=== PATIENT | female | born 1970 | race African-American/Black ===

== ENCOUNTER 2021-03-05 22:53 | Inpatient (IN) | payer BC ==
[~2021-03-05 22:53] MED LIST: Iopamidol-370 76% 500 ML 1 ML ONE
[2021-03-06] MEDS ORDERED: Ondansetron ODT 4 MG TAB ONE (00:05)
[2021-03-06] MEDS ORDERED: Morphine 4 MG/ML VIAL ONE ×2 (00:05→01:21)
[2021-03-06] MEDS ORDERED: Ondansetron PF 4 MG/2 ML Vial ONE (00:06)
[2021-03-06 00:07] LABS: #Eosinphils 0.2 thou/uL (0.0-0.7); #Lymphocytes 4.1 thou/uL (1.20-3.40); #Monocytes 0.8 thou/uL (0.11-0.59); %Basophils 0.2 % (0.0-1.0); %Eosinophils 1.5 % (0.0-10.0); %Lymphocytes 31.2 % (21.0-51.0); %Neutrophils 61.1 % (42.0-75.0); BHCG - Serum Negative (NEGATIVE); Hemoglobin 14.6 g/dL (12.0-16.0); Mean Corpuscular HGB CONC 34.8 g/dL (32.0-36.0); Mean Corpuscular Hemoglobin 31.2 pg (27.0-31.0); Mean Corpuscular Volume 89.7 fL (78.0-98.0); Mean Platelet Volume 8.4 fL (7.4-10.4); Platelet Count 296 thou/uL (130-400); RBC Distribution Width 11.8 % (11.5-14.5); Red Blood Cell (RBC) Count 4.68 mill/uL (4.20-5.40)
[2021-03-06 00:08] LABS: Pregs Control Background? CLEAR/WHITE (CLR/WHITE); Pregs Control Bar Appear? YES (CONTROL BAR)
[2021-03-06 00:23] LABS: ALT (SGPT) 11 U/L (8-55); AST (SGOT) 16 U/L (5-34); Albumin 4.2 g/dL (3.5-5.0); Alkaline Phosphatase 75 U/L (40-110); Anion Gap 14 mmol/L (10-20); BUN (Urea Nitrogen) 11 mg/dL (9.8-20.1); Bilirubin, Total 0.8 mg/dL (0.2-1.2); Calc. Creatinine Clearance 0 mL/min (70-130); Calcium 9.8 mg/dL (7.8-10.44); Carbon Dioxide 31 mmol/L (22-29); Chloride 101 mmol/L (98-107); Globulin 3.3 g/dL (2.4-3.5); Glucose 145 mg/dL (70-105); Lipase 13 U/L (8-78); Protein, Total 7.5 g/dL (6.0-8.3); Sodium 143 mmol/L (136-145)
[2021-03-06 00:27] LABS: Potassium 2.7 mmol/L (3.5-5.1)
[2021-03-06] MEDS ORDERED: Promethazine HCl 25 MG/ML VIAL ONE (00:59)
[2021-03-06] MEDS ORDERED: Potassium Chloride 40 MEQ in Sodium Chloride 0.9% 250 ML 250 ML IVPB SCH (02:00)
[2021-03-06] MEDS ORDERED: Acetaminophen 325 MG TAB PO PRN (03:23)
[2021-03-06] MEDS ORDERED: Ondansetron ODT 4 MG TAB PO PRN (03:23)
[2021-03-06] MEDS ORDERED: Ondansetron PF 4 MG/2 ML Vial IVP PRN (03:23)
[2021-03-06] MEDS ORDERED: Piperacillin/Tazobactam 3.375 GM in Sodium Chloride 0.9% 100 ML IVPB SCH ×2 (04:00→05:00)
[2021-03-06] MEDS ORDERED: Sodium Chloride 0.9% (PF) 10 ML VIAL FS PRN (04:30)
[2021-03-06] MEDS ORDERED: Pantoprazole 40 MG VIAL IVP SCH (05:00)
[2021-03-06 05:26] VITALS: BMI 30.7
[2021-03-06] MEDS: D5 1/2 NS w/20 mEq KCL 1,000 ML IV SCH ×2 (05:41→16:05)
[2021-03-06 06:18] LABS: Magnesium 1.7 mg/dL (1.6-2.6); Phosphorus 3.3 mg/dL (2.3-4.7)
[2021-03-06 06:33] LABS: Anion Gap 12 mmol/L (10-20); BUN (Urea Nitrogen) 9 mg/dL (9.8-20.1); CK (CPK) 56 U/L (29-168); Calc. Creatinine Clearance 99 mL/min (70-130); Calcium 9.3 mg/dL (7.8-10.44); Carbon Dioxide 27 mmol/L (22-29); Chloride 108 mmol/L (98-107); Glucose 118 mg/dL (70-105); Potassium 3.2 mmol/L (3.5-5.1); Sodium 144 mmol/L (136-145)
[2021-03-06 06:37] LABS: Lactic Acid 2.7 mmol/L (0.5-2.2)
[2021-03-06 13:04] LABS: SARS-CoV-2 PCR by NAA Not Detected (NotDetected)
[2021-03-06 16:58] LABS: Bacteria/HPF None Seen HPF (None Seen); Bilirubin Negative (Negative); Blood, Urine Negative (Negative); Clarity Clear (Clear); Glucose, Urine (Dipstick) Normal (Negative); Ketone, Urine 10 mg/dL (Negative); Leukocyte Negative Leu/uL (Negative); Nitrite Negative (Negative); Protein, Urine (Dipstick) 10 mg/dL (Neg-Trace); Squamous Epithelial 0-3 HPF (0-3); WBC/HPF 0-3 HPF (0-3); pH, Urine 7.5 (5.0-9.0)
[2021-03-06 17:01] LABS: Specific Gravity, Urine 1.052 (1.002-1.036)
[2021-03-06] MEDS: Pantoprazole 40 MG VIAL IVP SCH (20:00)
[2021-03-06] MEDS: Polyethylene Glycol 3350 17 GM Packet PO SCH (20:00)
[2021-03-07] MEDS: D5 1/2 NS w/20 mEq KCL 1,000 ML IV SCH ×3 (01:11→23:51)
[2021-03-07] MEDS: Pantoprazole 40 MG VIAL IVP SCH ×2 (08:25→20:30)
[2021-03-07] MEDS: Polyethylene Glycol 3350 17 GM Packet PO SCH ×2 (08:26→20:28)
[2021-03-07 09:00] LABS: #Basophils 0.1 thou/uL (0.0-0.2); #Eosinphils 0.1 thou/uL (0.0-0.7); #Lymphocytes 1.9 thou/uL (1.20-3.40); #Monocytes 0.7 thou/uL (0.11-0.59); #Neutrophils 4.2 thou/uL (1.40-6.50); %Basophils 0.8 % (0.0-1.0); %Eosinophils 1.4 % (0.0-10.0); %Lymphocytes 27.6 % (21.0-51.0); %Monocytes 10.4 % (0.0-10.0); %Neutrophils 59.8 % (42.0-75.0); Hemoglobin 11.5 g/dL (12.0-16.0); Mean Corpuscular HGB CONC 34.4 g/dL (32.0-36.0); Mean Corpuscular Hemoglobin 31.5 pg (27.0-31.0); Mean Corpuscular Volume 91.6 fL (78.0-98.0); Mean Platelet Volume 8.4 fL (7.4-10.4); Platelet Count 209 thou/uL (130-400); RBC Distribution Width 11.9 % (11.5-14.5); Red Blood Cell (RBC) Count 3.64 mill/uL (4.20-5.40)
[2021-03-07] MEDS ORDERED: Pantoprazole 40 MG VIAL IVP SCH (09:00)
[2021-03-07 09:28] LABS: Anion Gap 6 mmol/L (10-20); BUN (Urea Nitrogen) 5 mg/dL (9.8-20.1); Calc. Creatinine Clearance 105 mL/min (70-130); Carbon Dioxide 30 mmol/L (22-29); Chloride 108 mmol/L (98-107); Glucose 94 mg/dL (70-105); Potassium 3.6 mmol/L (3.5-5.1); Sodium 140 mmol/L (136-145)
[2021-03-07] MEDS ORDERED: PROPOFOL 200 MG/20 ML VIAL ONE (10:36)
[2021-03-07] MEDS ORDERED: Lidocaine 1% PF 5 ML VIAL ONE (10:36)
[2021-03-08] MEDS: Polyethylene Glycol 3350 17 GM Packet PO SCH (08:14)
[2021-03-08] MEDS: Pantoprazole 40 MG VIAL IVP SCH (08:15)
[2021-03-08] MEDS: D5 1/2 NS w/20 mEq KCL 1,000 ML IV SCH ×2 (10:28→17:24)
[2021-03-08 16:31] VITALS: BP 117/66; TEMP 97.2
[2021-03-08] MEDS ORDERED: Pantoprazole 40 MG VIAL IVP SCH ×2 (17:00→17:15)
== END 2021-03-08 18:25 | disposition home or self-care (01) | DRG 384 ==
LOC: ERS 22:53 → ONC 03-06 03:12 → OBSVTOIN 03-08 14:38
PROVIDERS: ADMIT Internal Medicine; ATTEND Internal Medicine
PROC: 0DB98ZX Excision of Duodenum, Via Natural or Artificial Opening Endoscopic, Diagnostic (ICD-10-PCS; principal; 2021-03-07)
DX: K26.9 Duodenal ulcer, unspecified as acute or chronic, without hemorrhage or perforation (principal); Z20.822 Contact with and (suspected) exposure to COVID-19; I10 Essential (primary) hypertension; E87.6 Hypokalemia; K21.9 Gastro-esophageal reflux disease without esophagitis; Z88.2 Allergy status to sulfonamides
CPT/HCPCS: 36415; 74177; 76705; 80048; 80053; 81001; 82550; 83036; 83605; 83690; 83735; 84100; 84443; 84703; 85025; 87338; 88305; 93005; 96365; 96366; 96367; 96375; 96376; C9113; G0378; J2270; J2405; J2543; J2550; J2704; J3480; J3490; J7050; Q0162; U0003; U0005